=== PATIENT | female | born 1935 | race Caucasian/White ===

== ENCOUNTER 2017-04-28 16:22 | Inpatient (IN) | payer MEDICARE ==
[~2017-04-28] VITALS: Ht 152.4 cm; Wt 77.1 kg
--- NOTE | ~2017-04-28 | PN ---
PATIENT:BRONSON BLANDON MEDICAL RECORD: [id number] LOCATION:[place] ADMISSION DATE: 04/28/17 PROGRESS NOTE DATE OF SERVICE: 05/02/2017 SUBJECTIVE: The patient's case was discussed with staff. She has no new complaint. OBJECTIVE: The patient is in good behavioral control. She has limited insight about her condition. She has not complained any about pain since having her Duragesic patch discontinued. She denies any intent to harm herself or others. TRANSINT:[id number] Voice Confirmation ID: [id number] DOCUMENT ID: [id number] TRINA ROMAN MD at 1215 CC: [id number] DICTATION DATE: 05/02/17 1450 KARATE TEACHER: 05/02/172003 ADM IN [facility] [address] [place] [address]
--- NOTE | ~2017-04-28 | DS ---
PATIENT:BRONSON BLANDON :31 MEDICAL RECORD: [id number] DISCHARGE SUMMARY ADMISSION DATE: 04/28/17 DISCHARGE DATE: 05/05/17 IDENTIFYING DATA: The patient is 81 years old and she was admitted to the hospital on a voluntary basis because of memory loss. The patient has a known history of dementia and recently became acutely more confused. Her daughter, who takes care of her at home, indicated that the patient has had a sudden onset of worsening confusion along with wandering away from the house, not sleeping at night and doing things that are potentially dangerous like trying to cook and leaving the stove on or leaving food unrefrigerated. The daughter says that she simply cannot handle the patient. The patient is delusional and does not know while she is hospitalized. She wants to go home to be with her children and . Her 7 years ago and she thinks she is at home. She also thinks her children are small and need to be taken care of. HOSPITAL COURSE: The patient was admitted to the hospital and fully evaluated from both medical, psychological, and social standpoint. She was treated with both memory enhancing and mood stabilizing medications. She was stabilized from a behavioral standpoint, but did not significantly improve regarding her memory loss as one would naturally expect with her dementia. Arrangements were made for her to have appropriate 24-hour a day care and she was subsequently discharged. DISCHARGE DIAGNOSES: AXIS I: Vascular dementia. AXIS II: None. AXIS III: Hypertension, history of stroke. AXIS IV: Moderate stressors. AXIS V: Global assessment of functioning is 40. PLAN: At the time of discharge, the patient was in good behavioral control and had no active thoughts of harming herself or others. She was tolerating her medications well. Her long-term prognosis is guarded. Brief supportive and educational interventions were made. Followup is going to be with her primary care physician. TRANSINT:[id number] Voice Confirmation ID: [id number] DOCUMENT ID: [id number] TRINA ROMAN MD at 1338 CC: [id number] DICTATION DATE: 05/09/17 1310 FLOWER STRIPPER: 05/10/17 1120 DIS IN 05/05/17 [place] [address]
--- NOTE | ~2017-04-28 | PN ---
PATIENT:BRONSON BLANDON MEDICAL RECORD: [id number] LOCATION:[place] [facility] ADMISSION DATE: 04/28/17 PROGRESS NOTE DATE OF SERVICE: 05/03/2017 SUBJECTIVE: The patient's case was discussed with staff. She has no new complaint. OBJECTIVE: The patient denies intent to harm herself or others. She tolerates her medicines well. Eye contact is fair. ASSESSMENT: No change in diagnoses. PLAN: Brief supportive and educational interventions were made. I anticipate the patient can be transitioned out of the hospital soon if this level of improvement is maintained. TRANSINT:[id number] Voice Confirmation ID: [id number] DOCUMENT ID: [id number] TRINA ROMAN MD at 1349 CC: [id number] DICTATION DATE: 05/03/17 1232 REPORT MANAGER: 05/03/172028 ADM IN [facility] [address] [place] [id number]
--- NOTE | ~2017-04-28 | PN ---
PATIENT:BRONSON BLANDON MEDICAL RECORD: [id number] LOCATION:[place] [facility] ADMISSION DATE: 04/28/17 PROGRESS NOTE DATE OF SERVICE: 05/05/2017 SUBJECTIVE: The patient's case was discussed with staff. She has no new complaint. OBJECTIVE: The patient is in good behavioral control with limited insight about her condition. She tolerates her medicines well. ASSESSMENT: No change in diagnoses. PLAN: The patient will be transitioned out of the hospital today. Her long-term prognosis is guarded. Supportive and educational interventions were made. Follow up will be with her primary care physician. TRANSINT:[id number] Voice Confirmation ID: [id number] DOCUMENT ID: [id number] TRINA ROMAN MD at 1442 CC: [id number] DICTATION DATE: 05/05/17 1439 SCALE ATTENDANT: 05/05/17 1739 DIS IN 05/05/17 [facility] [address] [place] [address]
--- NOTE | ~2017-04-28 | PSY ---
PATIENT NAME:BRONSON BLANDON MEDICAL RECORD: [id number] : 31 LOCATION:[place] [facility] ADMISSION DATE: 04/28/17 ACCOUNT: [id number] PSYCHIATRIC EVALUATION DATE OF EVALUATION: 04/29/17 Psychiatric Evaluation IDENTIFYING DATA: The patient is 81 years old and she is admitted to the hospital on a voluntary basis. CHIEF COMPLAINT: Memory loss. HISTORY OF PRESENT ILLNESS: The patient has a history of dementia. She recently has become increasingly confused. Her daughter takes care of her at home, but the daughter cannot be there all the time and the patient often wanders away, stays awake at night, and does things that are potentially dangerous like cooking and leaving food unrefrigerated. Daughter feels that just simply cannot handle the patient. The patient has no idea why she is here. She says that she needs to get home to her children and her . Unfortunately, her 7 years ago. She thinks she needs to go home and cook for him and the children. PAST MEDICAL HISTORY: Significant for hypertension and a transient ischemic attack. She has had a hysterectomy in the past. PAST PSYCHIATRIC HISTORY: Significant for a diagnosis of dementia. I am not sure who made the diagnosis or how long ago was made. ALLERGIES: No known drug allergies. CURRENT MEDICATIONS: Include Depakote, Duragesic, Lotensin, Megace, Namenda, Zantac, and melatonin. SOCIAL HISTORY: The patient does not drink, does not use drugs or tobacco. She is and she has 3 adult children. MENTAL STATUS EXAMINATION: The patient is awake, alert and oriented to person only. Her mood is flat. Her affect is constricted. Thought processes are circumstantial. Memory, concentration and abstraction abilities are moderately impaired and she denies any active intent to harm herself or others as well as active psychotic symptoms. ASSETS: Supportive family members. LIABILITIES: Limited insight. DIAGNOSTIC IMPRESSION: AXIS I: Vascular dementia. AXIS II: None. AXIS III: Hypertension, history of TIA. AXIS IV: Moderate stressors. AXIS V: Global assessment of functioning is 35. PLAN: At this time, the patient is admitted to the hospital secondary to confused, agitated behavior associated with a dementing illness. She will be comprehensively evaluated from both a medical, psychological, and social standpoint. She will be treated with both mood stabilizing and memory enhancing medications. Her long-term prognosis is guarded. It does appear clear that she needs 41-yolo-v-day supervision. What is unclear is which environment would be the least restrictive that can provide that. TRANSINT:[id number] Voice Confirmation ID: [id number] DOCUMENT ID: [id number] TRINA ROMAN MD at 1127 CC: [id number] DICTATION DATE: 04/29/17 1345 TRANSITION MGR: 04/29/17 1421 ADM IN [place] [facility] [id number] [place] [address]
--- NOTE | ~2017-04-28 | PN ---
PATIENT:BRONSON BLANDON MEDICAL RECORD: [id number] LOCATION:[place] [facility] ADMISSION DATE: 04/28/17 PROGRESS NOTE DATE OF SERVICE: 04/30/2017 SUBJECTIVE: The patient's case was discussed with staff. She has no new complaint. OBJECTIVE: The patient denies intent to harm herself or others. She generally tolerates her medicines well. Eye contact is poor. ASSESSMENT: No change in diagnoses. PLAN: The patient is currently taking Depakote for mood instability. She is taking a subtherapeutic dose and I think that I am going to just go ahead and discontinue the medicine in an effort to minimize medicines that either have no clinical indication or marginal clinical indication. This is the proper environment in which if I have mistaken that can easily be restarted that I am not convinced that this is helping her situation and weighing the relative risk and benefit, I think that it is preferable to try her without it. TRANSINT:[id number] Voice Confirmation ID: [id number] DOCUMENT ID: [id number] TRINA ROMAN MD at 1317 CC: [id number] DICTATION DATE: 04/30/17 1148 HAND II BLOCKER: 04/30/17 [address] [facility] [address] [place] [address]
--- NOTE | ~2017-04-28 | PN ---
PATIENT:BRONSON BLANDON MEDICAL RECORD: [id number] LOCATION:[place] [facility] ADMISSION DATE: 04/28/17 PROGRESS NOTE DATE OF SERVICE: 05/01/2017 SUBJECTIVE: The patient's case was discussed with staff. She has no new complaint. OBJECTIVE: The patient denies intent to harm herself or others. She is confused and not complaining of any pain. ASSESSMENT: No change in diagnoses. PLAN: Current medicines have been reviewed. I am going to discontinue her fentanyl patch. It is a fairly low dose and I will replace it if I need to, but I feel fairly confident that it is affecting her cognition. I will treat her with some p.r.n. Toradol and hopefully this will be sufficient to keep her comfortable. TRANSINT:[id number] Voice Confirmation ID: [id number] DOCUMENT ID: [id number] TRINA ROMAN MD at 1433 CC: [id number] DICTATION DATE: 05/01/17 1327 BASKET GRADER: 05/01/17 1337 ADM IN [place] [facility] [id number] [place] [address]
[2017-04-28] MEDS ORDERED: DEPAKOTE SPRIN125 MG PO (20:05)
[2017-04-28] MEDS ORDERED: DURAGESIC1 PATCH .4 TRANSDERM (20:06)
[2017-04-28] MEDS ORDERED: ATIVAN1 MG PO (20:07)
[2017-04-28] MEDS ORDERED: LOTENSIN40 MG PO (20:08)
[2017-04-28] MEDS ORDERED: MUPIROCIN22 GM TOPICAL (20:08)
[2017-04-28] MEDS ORDERED: MEGACE40 MG PO (20:09)
[2017-04-28] MEDS ORDERED: NYSTATIN1 PWD TOPICAL (20:10)
[2017-04-28] MEDS ORDERED: REMERON30 MG PO (20:10)
[2017-04-28] MEDS ORDERED: MIRALAX17 GM PO (20:12)
[2017-04-28] MEDS ORDERED: PLAVIX75 MG PO (20:12)
[2017-04-28] MEDS ORDERED: IPRATROPIUM BR42 MCG NASAL (20:14)
[2017-04-28] MEDS ORDERED: NAMENDA10 MG PO (20:15)
[2017-04-28] MEDS ORDERED: MOBIC7.5 MG PO (20:16)
[2017-04-28] MEDS ORDERED: ZANTAC150 MG PO (20:17)
[2017-04-28] MEDS ORDERED: MELATONIN5 MG PO (20:18)
[2017-04-28] MEDS ORDERED: BISCOLAX10 MG/SUPP RC (20:20)
[2017-04-29 00:43] VITALS: BP 169/107; BMI 27.5
[2017-04-29 06:57] LABS: ALBUMIN 3.2 g/dL (3.4-5.0); BILIRUBIN - TOTAL 0.5 mg/dL (0.2-1.3); CARBON DIOXIDE 22.4 mmol/L (21.0-32.0); CHOL - HDL RATIO 4.4 ratio (2.3-4.1); CREATININE - SERUM 1.1 mg/dL (0.6-1.3); POTASSIUM - SERUM 3.4 mmol/L (3.5-5.1); PROTEIN - SERUM 6.4 g/dL (6.4-8.2); THYROID STIMULATING HORMONE 3.15 uIU/mL (0.36-3.74); VALPROIC ACID (DEPAKOTE) 18.6 ug/mL (50.0-100.0)
[2017-04-29 07:02] LABS: HEMOGLOBIN A1C 4.7 % (4.8-6.0)
[2017-04-29 07:08] LABS: BASOPHILS 0.7 % (0-2); EOSINOPHILS 4.5 % (0-7); HEMOGLOBIN 11.7 g/dL (12-16); IMMATURE GRANULOCYTES 0.3 % (0-5); LYMPHOCYTES 39.1 % (15-50); MCH 30.5 pg (26.0-34.0); MCHC 33.4 g/dL (31.0-37.0); MCV 91.1 fL (80.0-100.0); MEAN PLATELET VOLUME 9.6 fL (7.4-10.4); MONOCYTES 8.1 % (2-11); NEUTROPHILS 47.3 % (40-80); PLATELET COUNT 254 10x3/uL (130-400); RBC 3.84 10x6/uL (4.00-5.40); RDW 14.3 % (11.5-14.5); WBC 5.8 10x3/uL (4.8-10.8)
[2017-04-29 08:56] VITALS: BP 147/83
[2017-04-29 17:04] LABS: APPEARANCE CLEAR (CLEAR); COLOR YELLOW (YELLOW)
[2017-04-29 17:05] LABS: BACTERIA MODERATE /hpf (NONE SEEN); BILIRUBIN NEGATIVE (NEGATIVE); EPITHELIAL CELLS 0-5 /hpf (0-5); GLUCOSE NEGATIVE (NEGATIVE); KETONE NEGATIVE (NEGATIVE); NITRITE NEGATIVE (NEGATIVE); PROTEIN 1+ mg/dL (NEGATIVE); RED CELLS - URINE 25-50 /hpf (0-5); SPECIFIC GRAVITY 1.015 (1.005-1.020); UROBILINOGEN NORMAL (NORMAL)
[2017-04-29 19:44] VITALS: BP 133/96
[2017-04-30 03:09] LABS: RAPID PLASMA REAGIN Non Reactive (Non Reactive)
[2017-04-30 06:12] LABS: FOLATE (FOLIC ACID) - SERUM 7.2 ng/mL (>3.0)
[2017-04-30 07:20] LABS: VITAMIN D 25 HYDROXY 17.6 ng/mL (30.0-100.0)
[2017-04-30 10:46] VITALS: BP 126/76
[2017-04-30 10:52] VITALS: BMI 27.5
[2017-04-30 20:41] VITALS: BP 130/70
[2017-05-01 09:31] VITALS: BP 134/82
[2017-05-01 13:29] VITALS: Ht 152.4 cm; Wt 77.1 kg
[2017-05-01 19:30] VITALS: BP 171/81
[2017-05-02 08:30] VITALS: BP 114/069
[2017-05-02 19:53] VITALS: BP 115/72
[2017-05-03 09:11] VITALS: BP 155/93
[2017-05-03 19:30] VITALS: BP 141/81
[2017-05-04 07:00] VITALS: BP 126/72
[2017-05-05 07:00] VITALS: BP 135/79
[2017-05-05] MEDS ORDERED: TRAZODONE HCL50 MG PO (08:13)
[2017-05-05] MEDS ORDERED: VITAMIN D5000 UNIT PO (08:14)
[2017-05-05] MEDS ORDERED: VITAMIN B-121000 MCG PO (08:14)
== END 2017-05-05 15:00 | disposition home or self-care (01) | DRG 57 ==
LOC: D.PSYCH 16:22
PROVIDERS: Psychiatry & Neurology Psychiatry
DX: I69.918 Other symptoms and signs involving cognitive functions following unspecified cerebrovascular disease (principal); F01.51 Vascular dementia, unspecified severity, with behavioral disturbance; Z91.83 Wandering in diseases classified elsewhere; J30.9 Allergic rhinitis, unspecified; G89.29 Other chronic pain; K59.00 Constipation, unspecified; R63.0 Anorexia; Z68.27 Body mass index [BMI] 27.0-27.9, adult; E53.8 Deficiency of other specified B group vitamins; E55.9 Vitamin D deficiency, unspecified; M19.90 Unspecified osteoarthritis, unspecified site; I10 Essential (primary) hypertension; K21.9 Gastro-esophageal reflux disease without esophagitis